=== PATIENT | female | born 1985 | race Caucasian/White ===

== ENCOUNTER → 2023-08-10 13:48 | Outpatient (REF) | payer BC, SELFPAY | LOC: HWRAD 13:48 | PROVIDERS: ATTENDING PHYSICIAN Obstetrics & Gynecology; FAMILY PHYSICIAN Internal Medicine | DX: N94.6 Dysmenorrhea, unspecified (principal) | CPT/HCPCS: 76830; 76856 ==

== ENCOUNTER → 2024-05-09 13:30 | Outpatient (REF) | payer BC, SELFPAY | LOC: WDC 13:30 | PROVIDERS: ATTENDING PHYSICIAN Obstetrics & Gynecology; FAMILY PHYSICIAN Internal Medicine | DX: Z12.31 Encounter for screening mammogram for malignant neoplasm of breast (principal) | CPT/HCPCS: 77063; 77067 ==

== ENCOUNTER → 2024-05-11 14:32 | Outpatient (REF) | payer BC, SELFPAY | LOC: MRI 14:32 | PROVIDERS: ATTENDING PHYSICIAN Psychiatry & Neurology Neurology; FAMILY PHYSICIAN Internal Medicine | DX: G35 Multiple sclerosis (principal) | CPT/HCPCS: 70551 ==

== ENCOUNTER → 2024-08-10 07:46 | Outpatient (REF) | payer BC, SELFPAY | LOC: HWRAD 07:46 | PROVIDERS: ATTENDING PHYSICIAN Internal Medicine | DX: R33.9 Retention of urine, unspecified (principal); G35 Multiple sclerosis | CPT/HCPCS: 76770 ==

== ENCOUNTER → 2024-08-24 08:15 | Outpatient (REF) | payer BC, SELFPAY | LOC: HWRAD 08:15 | PROVIDERS: FAMILY PHYSICIAN Internal Medicine | DX: R33.9 Retention of urine, unspecified (principal); R39.11 Hesitancy of micturition; R30.0 Dysuria; N20.0 Calculus of kidney | CPT/HCPCS: 74176 ==

== ENCOUNTER → 2024-09-08 17:20 | Outpatient (REF) | payer BC, SELFPAY | LOC: RAD 17:20 | PROVIDERS: ATTENDING PHYSICIAN Internal Medicine | DX: Q27.8 Other specified congenital malformations of peripheral vascular system (principal) | CPT/HCPCS: 74174; Q9967 ==

== ENCOUNTER → 2024-11-08 14:11 | Outpatient (REF) | payer BC, SELFPAY | LOC: PAVMRI 14:11 | PROVIDERS: ATTENDING PHYSICIAN Psychiatry & Neurology Neurology; FAMILY PHYSICIAN Internal Medicine | DX: G35 Multiple sclerosis (principal) | CPT/HCPCS: 70551 ==

== ENCOUNTER → 2024-11-11 09:27 | Outpatient (REF) | payer BC, SELFPAY | LOC: WDC 09:27 | PROVIDERS: ATTENDING PHYSICIAN Obstetrics & Gynecology; FAMILY PHYSICIAN Internal Medicine | DX: N64.4 Mastodynia (principal); N64.52 Nipple discharge | CPT/HCPCS: 76642; 77062; 77066 ==